=== PATIENT | female | born 1995 | race Caucasian/White ===

== ENCOUNTER 2017-04-18 12:14 | Emergency (ER) | payer MEDICAID, OTHER ==
[~2017-04-18] VITALS: Ht 172.7 cm; Wt 100.7 kg
[~2017-04-18 12:14] MED LIST: LORA10TA19 PO
[2017-04-18 12:21] VITALS: BP 133/80
--- NOTE | 2017-04-18 12:33 | NUR ---
PT AMBULATED TO BED 1.
--- NOTE | 2017-04-18 12:35 | NUR ---
21F BIB BOYFRIEND C/O RT LOWER BACK PAIN, NON-RADIATING, ACHING/SHARP 7/10 X YESTERDAY. PT STATES NO TRAUMA OR INJURY TO SITE AT THIS TIME; PT STATES " I WAS JUST SITTING AT WORK AND IT STARTED HURTING"; PT C/O "A LITTLE NAUSEA" BUT STATES NO VOMITING OR DIARRHEA AT THIS TIME; ABDOMEN SOFT, NON-TENDER, ACTIVE BOWEL SOUNDS X 4 QUADRANTS; PT AA&OX4, PERRLA, BL LUNG SOUNDS CLEAR, RR EVEN/UNLABORED, SKIN IS WARM/DRY/INTACT AT THIS TIME; STEADY GAIT; PT RESTING IN BED WITH HOB ELEVATED AND IN LOWEST POSITION; POSITIONED FOR COMFORT; ER MD MADE AWARE OF STATUS. WILL CONTINUE TO MONITOR.
--- NOTE | 2017-04-18 12:47 | NUR ---
ER MD DR. ESQUIVEL EVALUATING PT AT BEDSIDE.
[2017-04-18] MEDS ORDERED: DIAZEPAM 5 MG TAB PO ONE (12:55)
[2017-04-18] MEDS ORDERED: KETOROLAC 60 MG/2 ML VIAL IM ONE (12:55)
[2017-04-18] MEDS ORDERED: DIAZEPAM PFS 10 MG/2 ML SYR IM ONE (12:55)
[2017-04-18 13:24] VITALS: BP 133/80
--- NOTE | 2017-04-18 13:26 | NUR ---
Patient discharged with v/s stable. Written and verbal after care instructions given and explained. Patient alert, oriented and verbalized understanding of instructions. Ambulatory with steady gait. All questions addressed prior to discharge. ID band removed. Patient advised to follow up with PMD. Rx of MOTRIN, NORCO AND VALIUM given. Patient educated on indication of medication including possible reaction and side effects. Opportunity to ask questions provided and answered.
== END 2017-04-18 13:26 | disposition home or self-care (01) ==
LOC: MED 12:14
DX: M54.5 Low back pain (principal)
CPT/HCPCS: 81002; 81025; 96372; 99283; J1885

== ENCOUNTER 2017-09-08 15:53 | Emergency (ER) | payer MEDICAID, OTHER ==
[~2017-09-08] VITALS: Ht 175.3 cm; Wt 106.6 kg
[2017-09-08 15:55] VITALS: BP 118/66
--- NOTE | 2017-09-08 16:02 | NUR ---
PT AMBUALTED TO BED 7
--- NOTE | 2017-09-08 16:20 | NUR ---
PATIENT PRESENTS TO ED WITH c/o lower back pain increases with sudden movements x2 days denies n/v/d or recent injury/trauma---also denies dysuria DENIES N/V/D; SKIN IS PINK/WARM/DRY; AAOX4 WITH EVEN AND STEADY GAIT; LUNGS CLEAR BL; HR EVEN AND REGULAR; PT DENIES ANY FEVER, CP, SOB, OR COUGH AT THIS TIME; PATIENT STATES PAIN OF 8/10 AT THIS TIME; VSS; PATIENT POSITIONED FOR COMFORT; HOB ELEVATED; BEDRAILS UP X2; BED DOWN. ER MD MADE AWARE OF PT STATUS.
[2017-09-08] MEDS ORDERED: KETOROLAC 60 MG/2 ML VIAL IM ONE (17:10)
[2017-09-08 17:32] VITALS: BP 118/66
--- NOTE | 2017-09-08 17:32 | NUR ---
Patient discharged with v/s stable. Written and verbal after care instructions given and explained. Patient alert, oriented and verbalized understanding of instructions. Ambulatory with steady gait. All questions addressed prior to discharge. ID band removed. Patient advised to follow up with PMD. Rx of Tramadol, Robaxin, and Motrin given. Patient educated on indication of medication including possible reaction and side effects. Opportunity to ask questions provided and answered.
== END 2017-09-08 17:32 | disposition home or self-care (01) ==
LOC: MED 15:53
DX: M54.5 Low back pain (principal); G43.909 Migraine, unspecified, not intractable, without status migrainosus; Z79.899 Other long term (current) drug therapy
CPT/HCPCS: 81002; 81025; 96372; 99283; J1885

== ENCOUNTER 2017-09-20 10:44 | Emergency (ER) | payer OTHER ==
[~2017-09-20] VITALS: Ht 175.3 cm; Wt 105.7 kg
[2017-09-20 10:49] VITALS: BP 146/69
[2017-09-20 11:46] LABS: APPEARANCE,URINE CLEAR (CLEAR); BILIRUBIN,URINE NEGATIVE (NEGATIVE); BLOOD, URINE NEGATIVE (NEGATIVE); LEUKOCYTE ESTERASE ,URINE 1+ (NEGATIVE); NITRITE, URINE NEGATIVE (NEGATIVE); UGLUCOSE NEGATIVE (NEGATIVE)
[2017-09-20 11:48] LABS: COLOR,URINE STRAW (YELLOW)
[2017-09-20] MEDS: diphenhydrAMINE 50 MG/ML VIAL IM ONE (11:58)
[2017-09-20 11:59] LABS: RBC,URINE NONE SEEN /HPF (0-5); WBC,URINE 6-15 (FEW) /HPF (0-5)
[2017-09-20] MEDS: METOCLOPRAMIDE 10 MG/2 ML INJ VIAL IM ONE (11:59)
[2017-09-20 12:52] VITALS: BP 132/72
== END 2017-09-20 12:52 | disposition home or self-care (01) ==
LOC: MED 10:44
DX: G43.909 Migraine, unspecified, not intractable, without status migrainosus (principal); N39.0 Urinary tract infection, site not specified; Z79.899 Other long term (current) drug therapy
CPT/HCPCS: 81001; 81025; 87086; 96372; 99284; J1200; J2765

== ENCOUNTER 2020-10-08 11:57 | Emergency (ER) | payer OTHER ==
[~2020-10-08] VITALS: Ht 175.3 cm; Wt 120.7 kg
[2020-10-08 12:03] VITALS: BP 135/72
--- NOTE | 2020-10-08 12:29 | NUR ---
24 Y/O FEMALE PRESENTS WITH LEFT KNEE PAIN S/P FALL TWO WEEKS AGO. PATIENT STATES SHE FELL DIRECTLY ONTO KNEE ON CONCRETE, DID NOT SEE AN MD, AND HAS BEEN USING AND OLD KNEE BRACE FOR COMPRESSION. NO DEFORMITY NOTED. TENDERNESS AND MILD SWELLING NOTED. SKIN INTACT
--- NOTE | 2020-10-08 12:30 | NUR ---
PATIENT TAKEN TO XRAY VIA WHEELCHAIR
--- NOTE | 2020-10-08 12:37 | NUR ---
Patient returned from x-ray.
--- NOTE | 2020-10-08 13:01 | NUR ---
Dr. Phelps is evaluating the patient at bedside.
[2020-10-08] MEDS ORDERED: DICL1GEL19 TP (13:22)
[2020-10-08] MEDS ORDERED: IBUP-2213 PO (13:22)
[2020-10-08 13:30] VITALS: BP 135/72
--- NOTE | 2020-10-08 13:30 | NUR ---
Patient discharged with v/s stable. Written and verbal after care instructions given and explained. Patient alert, oriented and verbalized understanding of instructions. Ambulatory with steady gait. All questions addressed prior to discharge. ID band removed. Patient advised to follow up with PMD. Rx of IBUPROFEN AND VOLTAREN given. Patient educated on indication of medication including possible reaction and side effects. Opportunity to ask questions provided and answered.
== END 2020-10-08 13:30 | disposition home or self-care (01) ==
LOC: MED 11:57
DX: S80.02XA Contusion of left knee, initial encounter (principal); W01.0XXA Fall on same level from slipping, tripping and stumbling without subsequent striking against object, initial encounter; Y93.89 Activity, other specified; Y92.89 Other specified places as the place of occurrence of the external cause; Y99.8 Other external cause status
CPT/HCPCS: 73562; 99283

== ENCOUNTER 2020-11-13 08:12 | Emergency (ER) | payer OTHER ==
[~2020-11-13] VITALS: Ht 175.3 cm; Wt 121.1 kg
[~2020-11-13 08:12] MED LIST changes: +DICL1GEL19 TP; +IBUP-2213 PO
[2020-11-13 08:18] VITALS: BP 165/119
--- NOTE | 2020-11-13 08:25 | NUR ---
PT AMBULATED TO BED 07
--- NOTE | 2020-11-13 08:34 | NUR ---
24 YEAR OLD FEMALE COMPLAINS OF BACK PAIN X YESTERDAY. PT STATES THAT SHE DID NOT LIFT ANYTHING HEAVY, UNSURE OF HOW PAIN STARTED. PT DENIES N/V/D. PT DENIES PROBLEMS WITH URINATION. PT AOX4, BREATHING EVEN AND UNLABORED, SKIN WARM AND DRY. BED IN LOWEST POSITION, LOCKED, BED RAIL UPX1. PMH - HTN ALLERGIES - NKA
--- NOTE | 2020-11-13 08:39 | NUR ---
DR AMOR AT BEDSIDE EVALUATING PATIENT
[2020-11-13] MEDS ORDERED: KETOROLAC 15 MG/ML VIAL IM ONE (08:50)
--- NOTE | 2020-11-13 09:09 | NUR ---
ULTRASOUND AT BEDSIDE
--- NOTE | 2020-11-13 10:00 | NUR ---
PT AOX4, BREATHING EVEN AND UNLABORED. NO DISTRESS NOTED. ALL NEEDS MET AT THIS TIME.
[2020-11-13 10:08] LABS: BASOPHILS % (AUTO) 0.7 % (0.0-2.0); EOSINOPHILS # (AUTO) 0.1 K/uL (0-0.4); EOSINOPHILS % (AUTO) 1.1 % (0.0-4.0); HEMATOCRIT 40.9 % (36-48); HEMOGLOBIN 13.7 g/dL (12.0-16.0); LYMPHOCYTES % (AUTO) 31.7 % (20.5-51.1); MEAN CORPUSCULAR HEMOGLOBIN 31 pg (27-31); MEAN CORPUSCULAR HGB CONC 33 g/dL (33-37); MEAN CORPUSCULAR VOLUME 93.7 fL (80-94); MONOCYTES # (AUTO) 0.5 K/uL (0.8-1.0); MONOCYTES % (AUTO) 8.6 % (1.7-9.3); NEUTROPHILS # (AUTO) 3.7 K/uL (1.8-7.7); NEUTROPHILS % (AUTO) 57.9 % (42.2-75.2); PLATELET COUNT (AUTO) 229 K/uL (140-450); RED BLOOD CELL COUNT(AUTO) 4.37 MIL/uL (4.20-5.40); RED CELL DISTRIBUTION WIDTH 13.4 % (11.6-13.7); WHITE BLOOD COUNT (AUTO) 6.3 K/uL (4.8-10.8)
[2020-11-13 10:15] LABS: ALBUMIN 4.2 g/dL (3.4-5.0); ANION GAP 10.9 (8-16); CARBON DIOXIDE 27.1 mmol/L (21-32); CREATININE 0.9 mg/dL (0.6-1.3); TOTAL BILIRUBIN 0.6 mg/dL (0.0-1.0)
[2020-11-13] MEDS ORDERED: ACET-8386 PO (10:38)
[2020-11-13] MEDS ORDERED: CYCL-711 PO (10:38)
[2020-11-13] MEDS ORDERED: ONDA-24 PO (10:38)
--- NOTE | 2020-11-13 10:42 | NUR ---
DR AMOR AT BEDSIDE RE-EVALUATING PATIENT
[2020-11-13] MEDS ORDERED: MORPHINE SULFATE 4 MG/ML SYR IVP ONE (10:50)
[2020-11-13] MEDS ORDERED: LORazepam 0.5 MG TAB PO ONE (10:50)
[2020-11-13] MEDS ORDERED: ONDANSETRON 4 MG/2 ML VIAL IVP ONE (10:50)
[2020-11-13 11:20] VITALS: BP 128/82
--- NOTE | 2020-11-13 11:20 | NUR ---
Patient discharged with v/s stable. Written and verbal after care instructions about musculoskeletal pain given and explained. Patient alert, oriented and verbalized understanding of instructions. Ambulatory with steady gait. All questions addressed prior to discharge. ID band removed. Patient advised to follow up with PMD. Rx of norco, flexeril, zofran given. Patient educated on indication of medication including possible reaction and side effects. Opportunity to ask questions provided and answered.
== END 2020-11-13 11:20 | disposition home or self-care (01) ==
LOC: MED 08:12
DX: M54.9 Dorsalgia, unspecified (principal); I10 Essential (primary) hypertension; Z79.899 Other long term (current) drug therapy
CPT/HCPCS: 36415; 76856; 80053; 81002; 81025; 84703; 85025; 93976; 96372; 96374; 96375; 99285; J1885; J2270; J2405